=== PATIENT | male | born 1990 | race Caucasian/White ===

== ENCOUNTER 2021-02-21 14:31 | Inpatient (IN) | payer MEDICARE, OTHER ==
[2021-02-21] MEDS ORDERED: ASPIRIN 81 MG PO STA (14:58)
[2021-02-21 15:33] LABS: Basophils # (A) 0.1 k/uL (0-0.2); Basophils % (A) 1 %; Eosinophils # (A) 0.2 k/uL (0-0.7); Eosinophils % (A) 2 %; HCT 52.1 % (39.0-53.0); HGB 18.3 gm/dL (13.0-17.5); Lymphocytes # (A) 1.9 k/uL (1.0-4.8); Lymphocytes % (A) 19 %; MCH 31.3 pg (25.0-35.0); MCHC 35.2 g/dL (31.0-37.0); Mean Platelet Volume 7.7; Monocytes # (A) 0.4 k/uL (0-1.0); Monocytes % (A) 4 %; Neutrophils # (A) 7.2 k/uL (1.3-7.7); Neutrophils % (A) 74 %; Platelet Count 149 k/uL (150-450); RBC 5.85 m/uL (4.30-5.90); RDW 12.7 % (11.5-15.5); WBC 9.8 k/uL (3.8-10.6)
[2021-02-21] MEDS ORDERED: ONDANSETRON 4 MG/2 ML VIAL IVP STA (15:44)
[2021-02-21 15:46] LABS: ALT 58 U/L (4-49); AST 47 U/L (17-59); African American GFR (CKD) >90 (>60 ml/min/1.73 sqM); Albumin 4.2 g/dL (3.5-5.0); Alkaline Phosphatase 98 U/L (38-126); Anion Gap 11 mmol/L; Blood Urea Nitrogen 16 mg/dL (9-20); Calcium 9.4 mg/dL (8.4-10.2); Carbon Dioxide 21 mmol/L (22-30); Chloride 107 mmol/L (98-107); Glucose 124 mg/dL (74-99); Non-African American GFR(CKD) >90 (>60 ml/min/1.73 sqM); Potassium 4.5 mmol/L (3.5-5.1); Sodium 139 mmol/L (137-145); Total Bilirubin 0.8 mg/dL (0.2-1.3); Total Protein 7.5 g/dL (6.3-8.2)
--- NOTE | 2021-02-21 15:48 | XR ---
EXAMINATION TYPE: XR chest 2V DATE OF EXAM: 02/21/2021 COMPARISON: NONE HISTORY: Chest pain TECHNIQUE: Frontal and lateral views of the chest are obtained. FINDINGS: Cardiomediastinal silhouette appears within normal limits. No focal consolidations, pleural effusions , or pneumothorax. Visualized osseous structures and upper abdomen appear unremarkable. IMPRESSION: No acute cardiopulmonary process.
--- NOTE | 2021-02-21 15:54 | ED ---
Chest Pain HPI <Joe Jerry - Last Filed: 02/21/21 16:20> - General Source: patient Mode of arrival: ambulatory Limitations: no limitations <Aakash Pasucal - Last Filed: 02/21/21 16:38> - General Chief Complaint: Chest Pain Stated Complaint: Chest Pain Time Seen by Provider: 02/21/21 14:44 - History of Present Illness Initial Comments: 30-year-old male with history of autism, prediabetic, obesity presents to emergency Department with a chief complaint of chest pain. Mother states the patient has been complaining of chest pain for approximately one week and has been progressively worse over the last day. Patient states it is midsternal, nonreproducible, nonradiating and dull in nature. Should also reports exertional dyspnea that has developed during the period of the chest pain. Also reports feeling slightly lightheaded on exertion with occasional dizziness with the room is spinning around him. He denies any headaches, nausea, vomiting, visual changes, fatigue, one-sided weakness or paresthesias. No history of DVT or PE. (Aakash Pascual) - Related Data Home Medications Medication Instructions Recorded Confirmed FLUoxetine HCL [PROzac Weekly] 90 mg PO WE 02/21/21 02/21/21 Levothyroxine Sodium [Synthroid] 75 mcg PO DAILY 02/21/21 02/21/21 Melatonin 3 mg PO HS 02/21/21 02/21/21 Methylphenidate HCl [Concerta] 36 mg PO DAILY 02/21/21 02/21/21 Multivitamins, Thera [Multivitamin 1 tab PO HS 02/21/21 02/21/21 (formulary)] Semaglutide [Rybelsus] 7 mg PO DAILY 02/21/21 02/21/21 cloNIDine HCL 0.1 mg PO DAILY 02/21/21 02/21/21 cloNIDine HCL 0.2 mg PO HS 02/21/21 02/21/21 lisinopriL 10 mg PO DAILY 02/21/21 02/21/21 Allergies Allergy/AdvReac Type Severity Reaction Status Date / Time shellfish derived Allergy Unknown Verified 02/21/21 16:05 Review of Systems ROS Other: All systems not noted in ROS Statement are negative. <Joe Jerry - Last Filed: 02/21/21 16:20> ROS Other: All systems not noted in ROS Statement are negative. <Aakash Pascual - Last Filed: 02/21/21 16:38> ROS Statement: Those systems with pertinent positive or pertinent negative responses have been documented in the HPI. EKG Findings - EKG Comments: EKG Findings:: S1 Q3 T3. Sinus tachycardia. Ventricular rate 106, NV 146, QRS 90, QTC 486 <Aakash Pascual Last Filed: 02/21/21 16:38> Past Medical History Past Medical History: Diabetes Mellitus, Hypertension, Thyroid Disorder Additional Past Medical History / Comment(s): Autistic History of Any Multi-Drug Resistant Organisms: None Reported Additional Past Surgical History / Comment(s): tailbone cyst Past Psychological History: No Psychological Hx Reported Smoking Status: Never smoker Past Alcohol Use History: None Reported Past Drug Use History: None Reported <Aakash Pascual Last Filed: 02/21/21 16:38> General Exam Limitations: no limitations General appearance: alert, in no apparent distress, obese Head exam: Present: atraumatic, normocephalic, normal inspection Eye exam: Present: normal appearance, PERRL, EOMI Pupils: Present: normal accommodation ENT exam: Present: normal exam, normal oropharynx, mucous membranes moist, TM's normal bilaterally, normal external ear exam Neck exam: Present: normal inspection, full ROM. Absent: tenderness, lymphadenopathy Respiratory exam: Present: normal lung sounds bilaterally. Absent: respiratory distress, wheezes, rales, rhonchi, stridor, chest wall tenderness, accessory muscle use Cardiovascular Exam: Present: regular rate, normal rhythm, normal heart sounds. Absent: systolic murmur Extremities exam: Present: normal inspection, full ROM, normal capillary refill. Absent: tenderness Back exam: Present: normal inspection, full ROM. Absent: tenderness, CVA tenderness (R), CVA tenderness (L) Neurological exam: Present: alert, oriented X3 Psychiatric exam: Present: normal affect, normal mood Skin exam: Present: warm, dry, intact, normal color <Aakash Pascual - Last Filed: 02/21/21 16:38> Course Vital Signs 02/21/21 02/21/21 02/21/21 14:35 15:41 16:00 Temperature 97.9 F Pulse Rate 107 H 100 100 Respiratory 18 18 18 Rate Blood Pressure 98/66 101/66 118/52 O2 Sat by Pulse 96 96 96 Oximetry Chest Pain [facility] <Joe Jerry - Last Filed: 02/21/21 16:20> <Aakash Pascual - Last Filed: 02/21/21 16:38> - [facility] PA attestation: I, Dr. Joe Jerry, personally saw and examined the patient. I have reviewed and agree with the resident/PA findings, including all diagnostic interpretations and treatment plans as written unless otherwise stated. I was present for the huitron portions of any procedures performed and inclusive time noted for any critical care statement. Patient was seen and evaluated at the bedside along with MEREDITH Finn. Briefly, patient 30-year-old male presents with 1 week of shortness of breath. Does complain of pleuritic chest pain and shortness of breath. EKG shows S1 every [address] angiogram of the chest shows subtle pulmonary emboli. He does have elevated troponin of 0.180. He is not hypotensive. He does not have any hypoxia or excessive tachycardia at the bedside.. Patient started on high-dose heparin. Case discussed with rn eligibility Dr. Saleh who is willing to accept patient's care to the ICU. I did notify vascular surgeon Dr. Ivey who requested patient be admitted to medicines, started on heparin and to have echocardiogram in the morning. (Joe Jerry) 30-year-old male autistic, prediabetic, obese presents to the emergency department with a chief complaint of chest pain. On physical examination, patient does not appear to be in significant distress. On arrival he was a bit hypotensive which have gradually improved. He was given aspirin. EKG showed S1Q3T3. He was not hypoxic but was mildly tachycardic. Patient was immediately sent to CT imaging which revealed a saddle pulmonary embolism extending from the right main to the left main and into the pulmonary branches. There is also right-sided heart strain. Covid pending. Patient denied any cough. Heparin was immediately initiated. also earlier the patient and is in agreement with the treatment plan. Patient will be admitted to ICU. Case discussed with (Aakash Pascual) Disposition <Joe Jerry - Last Filed: 02/21/21 16:20> Is patient prescribed a controlled substance at d/c from ED?: No Time of Disposition: 16:38 <Aakash Pascual - Last Filed: 02/21/21 16:38> Clinical Impression: Pulmonary embolism Disposition: ADMITTED IP TO THIS HOSP Condition: Fair Referrals: Judith Rush DO [Primary Care Provider] - 1-2 days
[2021-02-21] MEDS ORDERED: HEPARIN SODIUM 1,000 UN/ML (10ML VL) IV ONE (15:55)
[2021-02-21] MEDS ORDERED: HEPARIN SODIUM 1,000 UN/ML (10ML VL) IV PRN (15:55)
--- NOTE | 2021-02-21 16:01 | CT ---
EXAMINATION TYPE: CT chest angio for PE DATE OF EXAM: 02/21/2021 COMPARISON: Chest radiograph same day HISTORY: Difficulty breathing and chest pain x1 week. CT DLP: 848.2 mGycm Automated exposure control for dose reduction was used. CONTRAST: CT Chest for pulmonary embolism performed with with IV Contrast, patient injected with 100ml mL of Is ovue 370. Multiple contiguous axial CT images were performed of the chest after the administration of 100 mL of Isovue-370. 2-D sagittal and coronal reformatted images were obtained. MIPS images were al so obtained for better evaluation of the vasculature. FINDINGS: LUNGS: Central airways are normal course and caliber. The nodular groundglass opacity in a tree-in-bu d pattern to the left upper lobe to lesser extent the right lower lobe medially. No pleural effusions or pneumothorax. MEDIASTINUM: There is satisfactory enhancement of the pulmonary artery and its branches. Acute saddle pulmonary embolism extending across the right and left main pulmonary arteries and into the segmenta l branches to the right upper lobe, right lower lobe, right middle lobe, left upper lobe, and left lo wer lobe some of which appear completely occluded. There is dilatation of the right ventricle relativ e to the left suggestive of right heart strain (RV/LV ratio of 1.2). There are no greater than 1 cm hilar or mediastinal lymph nodes. No pericardial effusion is seen. OTHER: Diffuse decreased attenuation of the liver parenchyma is fatty infiltration. No acute osseous abnormality.. IMPRESSION: 1. Saddle pulmonary embolism extending into the segmental branches of all the lung lobes. 2. Dilatation of the right ventricle relative to the left suggestive of right heart strain (RV/LV rat io of 1.2). 3. Tree-in-bud nodularity and groundglass within the left upper lobe and to a lesser extent the right lower lobe medially which is nonspecific and may represent just inflammatory etiologies such as resp iratory bronchiolitis or aspiration. Developing pulmonary infarct is not excluded. Findings discussed with Dr. Porter, ER physician, by Dr. Salazar via telephone at 1555 on 02/21/2021
[2021-02-21 16:04] LABS: INR 1.1 (<1.2); Prothrombin Time 11.6 sec (9.0-12.0)
[2021-02-21] MEDS: HEPARIN SOD,PORK IN 0.45% NACL 25,000 UNIT in 0.45% NACL 1 250ML.BAG IV SCH (16:10)
[2021-02-21] MEDS ORDERED: SODIUM CHLORIDE 0.9% 1,000 ML IV ONE (16:13)
[2021-02-21 16:15] LABS: Partial Thromboplastin Time 21.3 sec (22.0-30.0)
[2021-02-21] MEDS ORDERED: NALOXONE 0.4 MG/ML 1 ML VIAL IV PRN (16:23)
[2021-02-21 17:39] LABS: Glucose,Whole Blood 136 mg/dL (75-99)
[2021-02-22] MEDS: HEPARIN SOD,PORK IN 0.45% NACL 25,000 UNIT in 0.45% NACL 1 250ML.BAG IV SCH ×7 (03:02→16:44)
[2021-02-22 03:33] LABS: Basophils # (A) 0.1 k/uL (0-0.2); Basophils % (A) 1 %; Eosinophils # (A) 0.2 k/uL (0-0.7); Eosinophils % (A) 2 %; HCT 45.9 % (39.0-53.0); HGB 16.3 gm/dL (13.0-17.5); Lymphocytes # (A) 2.8 k/uL (1.0-4.8); Lymphocytes % (A) 30 %; MCHC 35.6 g/dL (31.0-37.0); MCV 89.9 fL (80.0-100.0); Mean Platelet Volume 7.7; Monocytes # (A) 0.5 k/uL (0-1.0); Monocytes % (A) 6 %; Neutrophils # (A) 5.5 k/uL (1.3-7.7); Neutrophils % (A) 60 %; Platelet Count 152 k/uL (150-450); RBC 5.11 m/uL (4.30-5.90); RDW 12.6 % (11.5-15.5); WBC 9.3 k/uL (3.8-10.6)
[2021-02-22 04:30] LABS: African American GFR (CKD) >90 (>60 ml/min/1.73 sqM); Anion Gap 9 mmol/L; Blood Urea Nitrogen 17 mg/dL (9-20); Carbon Dioxide 22 mmol/L (22-30); Chloride 109 mmol/L (98-107); Glucose 116 mg/dL (74-99); Magnesium 2.1 mg/dL (1.6-2.3); Non-African American GFR(CKD) >90 (>60 ml/min/1.73 sqM); Potassium 4.4 mmol/L (3.5-5.1); Sodium 140 mmol/L (137-145)
--- NOTE | 2021-02-22 07:30 | XR ---
EXAMINATION TYPE: XR chest 1V DATE OF EXAM: 02/22/2021 COMPARISON: 02/21/2021 HISTORY: 30-year-old male pulmonary embolism TECHNIQUE: Single frontal view of the chest is obtained. FINDINGS: The lung volumes with crowded vascular markings. Heart size accentuated, upper limits of normal. No c onsolidation or pleural effusion. IMPRESSION: Hypoventilatory changes. Heart is borderline in size. No focal infiltrate appreciated radiographicall y.
[2021-02-22 09:59] VITALS: BMI 44.8
[2021-02-22] MEDS ORDERED: MELATONIN 3 MG TABLET PO PRN (10:02)
[2021-02-22] MEDS: PANTOPRAZOLE 40 MG/10 ML VIAL IV SCH (10:09)
--- NOTE | 2021-02-22 12:31 | ECHOF ---
Referral Reason:pulmonary embolism MEASUREMENTS -------- HEIGHT: 182.9 cm WEIGHT: 149.7 kg BP: 132/90 RVIDd: 3.5 cm (< 3.3) IVSd: 1.6 cm (0.6 - 1.1) LVIDd: 3.8 cm (3.9 - 5.3) LVPWd: 1.5 cm (0.6 - 1.1) IVSs: 1.9 cm LVIDs: 2.6 cm LVPWs: 2.0 cm LA Diam: 3.2 cm (2.7 - 3.8) Ao Diam: 3.4 cm (2.0 - 3.7) AV Cusp: 2.0 cm (1.5 - 2.6) MV EXCURSION: 17.701 mm (> 18.000) MV EF SLOPE: 32 mm/s (70 - 150) EPSS: 0.3 cm MV E Escobar: 0.44 m/s MV DecT: 352 ms MV A Escobar: 0.52 m/s MV E/A Ratio: 0.84 RAP: 5.00 mmHg RVSP: 61.66 mmHg FINDINGS -------- Sinus rhythm. This was a technically adequate study. The left ventricular size is normal. There is moderate concentric left ventricular hypertrophy. O verall left ventricular systolic function is normal with, an EF between 55 - 60 %. The right ventricle is mildly enlarged. The right ventricular systolic function is moderately impai red. The left atrium is normal in size. The right atrial size is normal. 5 ml of Lumason was utilized for enhancement of images. The aortic valve is trileaflet, and appears structurally normal. No aortic stenosis or regurgitation. Normal appearing mitral valve. Mild tricuspid regurgitation present. There is severe pulmonary hypertension. The right ventricul ar systolic pressure, as measured by Doppler, is 61.66mmHg. Trace/mild (physiologic) pulmonic regurgitation. The aortic root size is normal. IVC Not well visulized. There is no pericardial effusion. CONCLUSIONS -------- 1. There is moderate concentric left ventricular hypertrophy. 2. Overall left ventricular systolic function is normal with, an EF between 55 - 60 %. 3. The right ventricle is mildly enlarged. 4. The right ventricular systolic function is moderately impaired. 5. 5 ml of Lumason was utilized for enhancement of images. 6. The aortic valve is trileaflet, and appears structurally normal. No aortic stenosis or regurgitati on. 7. Normal appearing mitral valve. 8. Mild tricuspid regurgitation present. 9. There is severe pulmonary hypertension. 10. The right ventricular systolic pressure, as measured by Doppler, is 61.66mmHg. 11. Trace/mild (physiologic) pulmonic regurgitation. 12. There is no pericardial effusion. CONFIGURATION RELEASE MANAGER: Beth Melgar RDCS
--- NOTE | 2021-02-22 13:12 | P.CNPUL ---
History of Present Illness Consult date: 02/22/21 Requesting physician: Jessica Ji Reason for consult: pulmonary embolism Chief complaint: Chest pain and shortness of breath History of present illness: This is a 30-year-old white male, history of autism, obesity, patient was brought in yesterday to the emergency room with acute onset of chest pain, his chest pain has been going on for about one week. But has been progressively worse over the last day prior to admission. Patient was also complaining of some midsternal chest pain, nonradiating and dull in nature. Patient had symptoms of lightheadedness, and occasional dizziness. Workup in the ER included a CT angiogram of the chest, and it showed saddle pulmonary embolism, extending to multiple segmental branches of the pulmonary arteries, echocardiogram showed evidence of pulmonary hypertension, and there is some component of right ventricular strain as noted on the CT of the chest. Patient was admitted, vascular surgery was consulted, however the patient has not been s een by vascular yet. He is already on heparin, hemodynamically stable, not in distress. The patient himself is not a great historian, Review of Systems Constitutional: Negative. HEENT: Negative. Cardiac: Negative. Pulmonary: As noted in HPI. GI: Negative. Genitourinary: Negative. Musculoskeletal: Negative. Skin: Negative. Neurologic: History of autism. Psychiatric: Negative. Hematologic: No history of blood clots or thromboembolic disease in the past. Skin: Negative Past Medical History Past Medical History: Diabetes Mellitus, Hypertension, Thyroid Disorder Additional Past Medical History / Comment(s): Autistic History of Any Multi-Drug Resistant Organisms: None Reported Additional Past Surgical History / Comment(s): tailbone cyst Past Psychological History: No Psychological Hx Reported Smoking Status: Never smoker Past Alcohol Use History: None Reported Past Drug Use History: None Reported Medications and Allergies Home Medications Medication Instructions Recorded Confirmed Type FLUoxetine HCL [PROzac Weekly] 90 mg PO WE 02/21/21 02/21/21 History Levothyroxine Sodium [Synthroid] 75 mcg PO DAILY 02/21/21 02/21/21 History Melatonin 3 mg PO HS 02/21/21 02/21/21 History Methylphenidate HCl [Concerta] 36 mg PO DAILY 02/21/21 02/21/21 History Multivitamins, Thera [Multivitamin 1 tab PO HS 02/21/21 02/21/21 History (formulary)] Semaglutide [Rybelsus] 7 mg PO DAILY 02/21/21 02/21/21 History cloNIDine HCL 0.1 mg PO DAILY 02/21/21 02/21/21 History cloNIDine HCL 0.2 mg PO HS 02/21/21 02/21/21 History lisinopriL 10 mg PO DAILY 02/21/21 02/21/21 History Allergies Allergy/AdvReac Type Severity Reaction Status Date / Time shellfish derived Allergy Unknown Verified 02/21/21 16:05 Physical Exam Vitals: Vital Signs Temp Pulse Resp BP Pulse Ox 02/22/21 13:00 107 H 14 112/90 96 02/22/21 12:00 97.8 F 93 16 128/90 96 02/22/21 11:00 95 14 131/95 96 02/22/21 10:00 92 18 127/91 94 L 02/22/21 09:00 90 12 125/88 94 L 02/22/21 08:00 97.9 F 95 16 126/82 95 02/22/21 07:00 98 12 128/97 96 02/22/21 06:00 92 12 132/90 95 02/22/21 05:00 87 16 124/88 95 02/22/21 04:00 98.3 F 97 14 125/87 96 02/22/21 03:00 92 10 L 114/90 96 02/22/21 02:00 92 18 112/90 95 02/22/21 01:00 98 16 114/78 98 02/22/21 00:00 98.4 F 87 14 125/83 97 02/21/21 23:00 88 14 101/85 96 02/21/21 22:31 91 12 101/85 97 02/21/21 22:00 91 913 H 106/83 96 02/21/21 21:00 97 12 106/81 97 02/21/21 20:00 97.7 F 104 H 13 116/78 93 L 02/21/21 19:00 102 H 14 93 L 02/21/21 18:21 105 H 8 L 96 02/21/21 17:16 97.9 F 98 18 103/81 96 02/21/21 17:00 98.2 F 98 22 103/81 97 02/21/21 16:00 103 H 13 101/66 94 L 02/21/21 15:41 100 18 101/66 96 02/21/21 15:00 119/97 02/21/21 14:52 109 H 32 H 02/21/21 14:35 97.9 F 107 H 18 98/66 96 Intake and Output 02/21/21 02/22/21 02/22/21 22:59 06:59 14:59 Intake Total 360 375.931 100 Output Total 0 705 240 Balance 360 -329.069 -140 Intake: IV 120 160 100 0.9NS 120 160 100 Intake, IV Titration 215.931 Amount Heparin Sod,Pork in 0.45% 215.931 NaCl 25,000 unit In 0.45 % NaCl 1 250ml.bag @ 15. 366 UNITS/KG/HR 23.001 mls/hr IV .[id number] [facility] Rx #:[id number] Oral 240 Output: Urine 0 705 240 Other: Voiding Method Urinal Indwelling Catheter Indwelling Catheter Weight 149.685 kg 149.9 kg 149.9 kg Physical Exam: Revealed 30-year-old white male in no distress. Head: Atraumatic, normocephalic. HEENT:[Neck is supple.] [No neck masses.] [No thyromegaly.] [No JVD.] Chest: [Clear throughout, no crackles, no rhonchi, no wheezes.] Cardiac Exam: [Normal S1 and S2, no S3 gallop, no murmur.] Abdomen: [Soft, nontender, no megaly, no rebound, no guarding, normal bowel sounds.] Extremities: [No clubbing, no edema, no cyanosis.] Neurological Exam: [No focal neurologic deficit.] Alert oriented 3. Psychiatric: Normal mood affect and normal mental status examination. Skin: No rashes. [place] skeletal: No deformities and no limitation in range of motion. Results - Laboratory Findings CBC and BMP: 02/22/21 03:12 02/22/21 03:12 PT/INR, D-dimer PT 11.6 sec (9.0-12.0) 02/21/21 15:22 INR 1.1 (<1.2) 02/21/21 15:22 D-Dimer 14.36 mg/L FEU (<0.60) H 02/21/21 15:22 Abnormal lab findings: Abnormal Labs 02/21/21 02/21/21 02/21/21 15:22 15:22 15:22 Hgb 18.3 H Plt Count 149 L APTT 21.3 L D-Dimer 14.36 H Chloride Carbon Dioxide 21 L Glucose 124 H POC Glucose (mg/dL) ALT 58 H Troponin I 02/21/21 02/21/21 02/21/21 15:22 17:37 22:20 Hgb Plt Count APTT 99.3 H D-Dimer Chloride Carbon Dioxide Glucose POC Glucose (mg/dL) 136 H ALT Troponin I 0.180 H* 02/22/21 02/22/21 02/22/21 03:12 03:12 06:44 Hgb Plt Count APTT 49.0 H 52.0 H D-Dimer Chloride 109 H Carbon Dioxide Glucose 116 H POC Glucose (mg/dL) ALT Troponin I - Diagnostic Findings CT scan - chest: image reviewed (As noted in HPI.) Assessment and Plan Assessment: Impression: Acute pulmonary embolism Severe pulmonary hypertension secondary to above. History of autism. Benign essential hypertension. History of diabetes. History of hypothyroidism. Recommendation: Continue heparin. Vascular surgery consultation for possible EKOS procedure / thrombolysis. Consider TPA and the patient demonstrates any worsening clinical status. Continue to monitor in the ICU for the next 24 hours at least. Resume home meds. We will continue to follow. Time with Patient: Greater than 30
--- NOTE | 2021-02-22 13:20 | P.HPIM ---
History of Present Illness 30-year-old male came in with complaints of chest pain nonradiating pleuritic in nature had a CT angios of the chest which showed saddle pulmonary embolism. Patient has mildly elevated troponins patient also had a echocardiogram which showed severe pulmonary hypertension and right ventricle strain. Basilar surgery was consulted for possible intralesional thrombolytic treatment. Patient is presently on IV heparin. Patient chest pain presently completely resolved patient was tachycardic as. It's probably because of his methy lphenidate which he takes for autism. Patient appears to be mostly nonambulatory and is obese. REVIEW OF SYSTEMS: CONSTITUTIONAL: No fever, no malaise, no fatigue. HEENT: No recent visual problems or hearing problems. Denied any sore throat. CARDIOVASCULAR: No orthopnea, PND, no palpitations, no syncope. PULMONARY: No shortness of breath, no cough, no hemoptysis. GASTROINTESTINAL: No diarrhea, no nausea, no vomiting, no abdominal pain. NEUROLOGICAL: No headaches, no weakness, no numbness. HEMATOLOGICAL: Denies any bleeding or petechiae. GENITOURINARY: Denies any burning micturition, frequency, or urgency. MUSCULOSKELETAL/RHEUMATOLOGICAL: Denies any joint pain, swelling, or any muscle pain. ENDOCRINE: Denies any polyuria or polydipsia. The rest of the 14-point review of systems is negative. PHYSICAL EXAMINATION: GENERAL: The patient is alert and oriented x3, not in any acute distress. Well developed, well nourished. Obese HEENT: Pupils are round and equally reacting to light. EOMI. No scleral icterus. No conjunctival pallor. Normocephalic, atraumatic. No pharyngeal erythema. No thyromegaly. CARDIOVASCULAR: S1 and S2 present. No murmurs, rubs, or gallops. PULMONARY: Chest is clear to auscultation, no wheezing or crackles. ABDOMEN: Soft, nontender, nondistended, normoactive bowel sounds. No palpable organomegaly. MUSCULOSKELETAL: No joint swelling or deformity. EXTREMITIES: No cyanosis, clubbing, or pedal edema. NEUROLOGICAL: Gross neurological examination did not reveal any focal deficits. SKIN: No rashes. Assessment and plan Acute pulmonary embolism saddle PE, as per surgery will evaluate the patient patient is presently on IV heparin as listed surgeries evaluating for intralesional thrombolytic therapy patient does have right ventricular strain at this time. Patient does have pulmonary hypertension. Peak PE is probably secondary to mostly sedentary state and obesity. -Severe pulmonary hypertension secondary to pulmonary embolism -Essential hypertension -type 2 diabetes mellitus - hypothyroidism DVT prophylaxis: Patient is being treated for pulmonary embolism Past Medical History Past Medical History: Diabetes Mellitus, Hypertension, Thyroid Disorder Additional Past Medical History / Comment(s): Autistic History of Any Multi-Drug Resistant Organisms: None Reported Additional Past Surgical History / Comment(s): tailbone cyst Past Psychological History: No Psychological Hx Reported Smoking Status: Never smoker Past Alcohol Use History: None Reported Past Drug Use History: None Reported Medications and Allergies Home Medications Medication Instructions Recorded Confirmed Type FLUoxetine HCL [PROzac Weekly] 90 mg PO WE 02/21/21 02/21/21 History Levothyroxine Sodium [Synthroid] 75 mcg PO DAILY 02/21/21 02/21/21 History Melatonin 3 mg PO HS 02/21/21 02/21/21 History Methylphenidate HCl [Concerta] 36 mg PO DAILY 02/21/21 02/21/21 History Multivitamins, Thera [Multivitamin 1 tab PO HS 02/21/21 02/21/21 History (formulary)] Semaglutide [Rybelsus] 7 mg PO DAILY 02/21/21 02/21/21 History cloNIDine HCL 0.1 mg PO DAILY 02/21/21 02/21/21 History cloNIDine HCL 0.2 mg PO HS 02/21/21 02/21/21 History lisinopriL 10 mg PO DAILY 02/21/21 02/21/21 History Allergies Allergy/AdvReac Type Severity Reaction Status Date / Time shellfish derived Allergy Unknown Verified 02/21/21 16:05 Physical Exam Vitals: Vital Signs Temp Pulse Resp BP Pulse Ox 02/22/21 13:00 107 H 14 112/90 96 02/22/21 12:00 97.8 F 93 16 128/90 96 02/22/21 11:00 95 14 131/95 96 02/22/21 10:00 92 18 127/91 94 L 02/22/21 09:00 90 12 125/88 94 L 02/22/21 08:00 97.9 F 95 16 126/82 95 02/22/21 07:00 98 12 128/97 96 02/22/21 06:00 92 12 132/90 95 02/22/21 05:00 87 16 124/88 95 02/22/21 04:00 98.3 F 97 14 125/87 96 02/22/21 03:00 92 10 L 114/90 96 02/22/21 02:00 92 18 112/90 95 02/22/21 01:00 98 16 114/78 98 02/22/21 00:00 98.4 F 87 14 125/83 97 02/21/21 23:00 88 14 101/85 96 02/21/21 22:31 91 12 101/85 97 02/21/21 22:00 91 913 H 106/83 96 02/21/21 21:00 97 12 106/81 97 02/21/21 20:00 97.7 F 104 H 13 116/78 93 L 02/21/21 19:00 102 H 14 93 L 02/21/21 18:21 105 H 8 L 96 02/21/21 17:16 97.9 F 98 18 103/81 96 02/21/21 17:00 98.2 F 98 22 103/81 97 02/21/21 16:00 103 H 13 101/66 94 L 02/21/21 15:41 100 18 101/66 96 02/21/21 15:00 119/97 02/21/21 14:52 109 H 32 H 02/21/21 14:35 97.9 F 107 H 18 98/66 96 Intake and Output 02/21/21 02/22/21 02/22/21 22:59 06:59 14:59 Intake Total 360 375.931 100 Output Total 0 705 240 Balance 360 -329.069 -140 Intake: IV 120 160 100 0.9NS 120 160 100 Intake, IV Titration 215.931 Amount Heparin Sod,Pork in 0.45% 215.931 NaCl 25,000 unit In 0.45 % NaCl 1 250ml.bag @ 15. 366 UNITS/KG/HR 23.001 mls/hr IV .[id number] REPLACED BY [facility] Rx #:[id number] Oral 240 Output: Urine 0 705 240 Other: Voiding Method Urinal Indwelling Catheter Indwelling Catheter Weight 149.685 kg 149.9 kg 149.9 kg Results CBC & Chem 7: 02/22/21 03:12 02/22/21 03:12 Labs: Abnormal Lab Results - Last 24 Hours (Table) 02/21/21 02/21/21 02/21/21 Range/Units 15:22 15:22 15:22 Hgb 18.3 H (13.0-17.5) gm/dL Plt Count 149 L (150-450) k/uL APTT 21.3 L (22.0-30.0) sec D-Dimer 14.36 H (<0.60) mg/L FEU Chloride (98-107) mmol/L Carbon Dioxide 21 L (22-30) mmol/L Glucose 124 H (74-99) mg/dL POC Glucose (mg/dL) (75-99) mg/dL ALT 58 H (4-49) U/L Troponin I (0.000-0.034) ng/mL 02/21/21 02/21/21 02/21/21 Range/Units 15:22 17:37 22:20 Hgb (13.0-17.5) gm/dL Plt Count (150-450) k/uL APTT 99.3 H (22.0-30.0) sec D-Dimer (<0.60) mg/L FEU Chloride (98-107) mmol/L Carbon Dioxide (22-30) mmol/L Glucose (74-99) mg/dL POC Glucose (mg/dL) 136 H (75-99) mg/dL ALT (4-49) U/L Troponin I 0.180 H* (0.000-0.034) ng/mL 02/22/21 02/22/21 02/22/21 Range/Units 03:12 03:12 06:44 Hgb (13.0-17.5) gm/dL Plt Count (150-450) k/uL APTT 49.0 H 52.0 H (22.0-30.0) sec D-Dimer (<0.60) mg/L FEU Chloride 109 H (98-107) mmol/L Carbon Dioxide (22-30) mmol/L Glucose 116 H (74-99) mg/dL POC Glucose (mg/dL) (75-99) mg/dL ALT (4-49) U/L Troponin I (0.000-0.034) ng/mL Thrombosis Risk Factor Assmnt - Choose All That Apply Any of the Below Risk Factors Present?: Yes Each Factor Represents 1 point: Medical pt on bed rest, Obesity (BMI >25) Each Risk Factor Represents 2 Points: Patient confined to bed Thrombosis Risk Factor Assessment Total Risk Factor Score: 4 Thrombosis Risk Factor Assessment Level: Moderate Risk
[2021-02-22] MEDS ORDERED: ALTEPLASE 2 MG VIAL (CATHFLO) IV STA (15:05)
[2021-02-22] MEDS ORDERED: IV FLUID CONTINUATION 1,000 ML IV ONE (15:05)
--- NOTE | 2021-02-22 15:22 | P.GSCN ---
History of Present Illness Consult date: 02/22/21 History of present illness: Rodo is a 30-year-old high functioning autistic male who presented to the emergency room with complaints of shortness of breath and chest pain. On workup and evaluation he was found to have a pulmonary which appeared to be submassive with right heart strain with evidence of severe pulmonary hypertension and right heart strain on echocardiogram. He has not is any increasing swelling in either of his legs. He denies any other blood clots in the past. Per his mother there is some question whether or not his father had blood clots versus atherosclerotic disease. He denies any recent travel or immobility. He is relatively sedentary Review of Systems 14 point review of systems performed Pertinent positives and negatives per the HPI. Past Medical History Past Medical History: Diabetes Mellitus, Hypertension, Thyroid Disorder Additional Past Medical History / Comment(s): Autistic History of Any Multi-Drug Resistant Organisms: None Reported Additional Past Surgical History / Comment(s): tailbone cyst Past Psychological History: No Psychological Hx Reported Smoking Status: Never smoker Past Alcohol Use History: None Reported Past Drug Use History: None Reported Medications and Allergies Home Medications Medication Instructions Recorded Confirmed Type FLUoxetine HCL [PROzac Weekly] 90 mg PO WE 02/21/21 02/21/21 History Levothyroxine Sodium [Synthroid] 75 mcg PO DAILY 02/21/21 02/21/21 History Melatonin 3 mg PO HS 02/21/21 02/21/21 History Methylphenidate HCl [Concerta] 36 mg PO DAILY 02/21/21 02/21/21 History Multivitamins, Thera [Multivitamin 1 tab PO HS 02/21/21 02/21/21 History (formulary)] Semaglutide [Rybelsus] 7 mg PO DAILY 02/21/21 02/21/21 History cloNIDine HCL 0.1 mg PO DAILY 02/21/21 02/21/21 History cloNIDine HCL 0.2 mg PO HS 02/21/21 02/21/21 History lisinopriL 10 mg PO DAILY 02/21/21 02/21/21 History Allergies Allergy/AdvReac Type Severity Reaction Status Date / Time shellfish derived Allergy Unknown Verified 02/21/21 16:05 Surgical - Exam Vital Signs Temp Pulse Resp BP Pulse Ox 97.9 F 107 H 18 98/66 96 02/21/21 14:35 02/21/21 14:35 02/21/21 14:35 02/21/21 14:35 02/21/21 14:35 Gen. is a pleasant and cooperative obese male in no acute distress. HEENT is normocephalic, atraumatic, extraocular motion intact heart is tachycardic but otherwise regular. Lungs are clear bilaterally. abdomen is soft obese, nontender nondistended. Extremity show no clubbing, cyanosis or edema. Normal mood And affect. Cranial nerves II-12 grossly intact. Skin without rashes Results CTA of the chest is reviewed. Echocardiogram is reviewed. - Labs 02/22/21 03:12 02/22/21 03:12 Abnormal Lab Results - Last 24 Hours (Table) 02/21/21 02/21/21 02/21/21 Range/Units 15:22 15:22 15:22 Hgb 18.3 H (13.0-17.5) gm/dL Plt Count 149 L (150-450) k/uL APTT 21.3 L (22.0-30.0) sec D-Dimer 14.36 H (<0.60) mg/L FEU Chloride (98-107) mmol/L Carbon Dioxide 21 L (22-30) mmol/L Glucose 124 H (74-99) mg/dL POC Glucose (mg/dL) (75-99) mg/dL ALT 58 H (4-49) U/L Troponin I (0.000-0.034) ng/mL 02/21/21 02/21/21 02/21/21 Range/Units 15:22 17:37 22:20 Hgb (13.0-17.5) gm/dL Plt Count (150-450) k/uL APTT 99.3 H (22.0-30.0) sec D-Dimer (<0.60) mg/L FEU Chloride (98-107) mmol/L Carbon Dioxide (22-30) mmol/L Glucose (74-99) mg/dL POC Glucose (mg/dL) 136 H (75-99) mg/dL ALT (4-49) U/L Troponin I 0.180 H* (0.000-0.034) ng/mL 02/22/21 02/22/21 02/22/21 Range/Units 03:12 03:12 06:44 Hgb (13.0-17.5) gm/dL Plt Count (150-450) k/uL APTT 49.0 H 52.0 H (22.0-30.0) sec D-Dimer (<0.60) mg/L FEU Chloride 109 H (98-107) mmol/L Carbon Dioxide (22-30) mmol/L Glucose 116 H (74-99) mg/dL POC Glucose (mg/dL) (75-99) mg/dL ALT (4-49) U/L Troponin I (0.000-0.034) ng/mL Diabetes panel 02/21/21 02/22/21 Range/Units 15:22 03:12 Sodium 139 140 (137-145) mmol/L Potassium 4.5 4.4 (3.5-5.1) mmol/L Chloride 107 109 H (98-107) mmol/L Carbon Dioxide 21 L 22 (22-30) mmol/L BUN 16 17 (9-20) mg/dL Creatinine 0.99 0.87 (0.66-1.25) mg/dL Glucose 124 H 116 H (74-99) mg/dL Calcium 9.4 9.0 (8.4-10.2) mg/dL AST 47 (17-59) U/L ALT 58 H (4-49) U/L Alkaline Phosphatase 98 (38-126) U/L Total Protein 7.5 (6.3-8.2) g/dL Albumin 4.2 (3.5-5.0) g/dL Calcium panel 02/21/21 02/22/21 Range/Units 15:22 03:12 Calcium 9.4 9.0 (8.4-10.2) mg/dL Albumin 4.2 (3.5-5.0) g/dL Pituitary panel 02/21/21 02/22/21 Range/Units 15:22 03:12 Sodium 139 140 (137-145) mmol/L Potassium 4.5 4.4 (3.5-5.1) mmol/L Chloride 107 109 H (98-107) mmol/L Carbon Dioxide 21 L 22 (22-30) mmol/L BUN 16 17 (9-20) mg/dL Creatinine 0.99 0.87 (0.66-1.25) mg/dL Glucose 124 H 116 H (74-99) mg/dL Calcium 9.4 9.0 (8.4-10.2) mg/dL Adrenal panel 02/21/21 02/22/21 Range/Units 15:22 03:12 Sodium 139 140 (137-145) mmol/L Potassium 4.5 4.4 (3.5-5.1) mmol/L Chloride 107 109 H (98-107) mmol/L Carbon Dioxide 21 L 22 (22-30) mmol/L BUN 16 17 (9-20) mg/dL Creatinine 0.99 0.87 (0.66-1.25) mg/dL Glucose 124 H 116 H (74-99) mg/dL Calcium 9.4 9.0 (8.4-10.2) mg/dL Total Bilirubin 0.8 (0.2-1.3) mg/dL AST 47 (17-59) U/L ALT 58 H (4-49) U/L Alkaline Phosphatase 98 (38-126) U/L Total Protein 7.5 (6.3-8.2) g/dL Albumin 4.2 (3.5-5.0) g/dL Assessment and Plan Assessment: Submassive pulmonary embolism with evidence of right heart strain Tachycardia secondary to above Autism Plan: Long discussion was had with the patient and his mother regarding the findings of the computed tomography scan as well as the echocardiogram. At this time I do believe he would benefit from thrombolytic intervention. Risks and benefits were discussed with the patient and his mother who seemingly understood and are willing to proceed as such. We will plan to go for the procedure today.
[2021-02-22] MEDS ORDERED: fentaNYL (PF) 50 MCG/ML 2 ML AMP ONE (15:24)
[2021-02-22] MEDS ORDERED: fentaNYL (PF) 50 MCG/ML 2 ML AMP IV ONE (15:25)
[2021-02-22] MEDS ORDERED: LIDOCAINE 1% INJ 10MG/ML (20 ML MDV) ONE (15:26)
[2021-02-22] MEDS ORDERED: LIDOCAINE 1% INJ 10MG/ML (20 ML MDV) SQ ONE (15:26)
--- NOTE | 2021-02-22 16:03 | P.OP ---
Date of Procedure: 02/22/21 Description of Procedure: Preoperative diagnosis: Submassive bilateral pulmonary emboli Postoperative diagnosis: Same Procedure: #1 ultrasound-guided right common femoral vein access of central venous catheters x2 #2 Initiation of pulmonary pharmacal mechanical thrombolysis with EKOS Surgeon: Sarah Beth Oliver D.O. EBL: Less than 10 mL IV fluids: See records Urine output: See records Drains: None Complications: None immediately apparent Condition: Stable to ICU Operative indication and findings: [Rodo is a 30-year-old relatively sedentary autistic male who presented to the ER with chest pains or shortness of breath was found to have a submassive bilateral pulmonary emboli with extensive thrombus burden and saddle pulmonary embolus. Given these findings it was recommended he undergo thrombolysis. Risks and benefits were discussed with the patient as well as his mother who seemingly understood and were willing to proceed as such] Procedure in detail: [The patient was taken to the radiology suite and placed in supine position. Bilateral groins are prepped and draped in usual sterile fa shion. A preprocedure timeout was performed, all parties were in agreement. The right common femoral vein was identified and found to be compressible without any evidence of visible thrombus. The skin overlying was anesthetized 1% lidocaine plain. A multipurpose needle was used and the vein was accessed and a wire was placed. This was done again through a separate access site. 2, 6-English sheaths were placed. Using catheters and wires the right and left pulmonary arteries were accessed. Due to severely elevated PA pressure greater than 60s in the echo, no pulmonary angiogram was performed An EKOS ultrasonic pharmacomechanical infusion catheter was placed and confirmed appropriate positioning within the pulmonary arteries using fluoroscopy. 2 mg of TPA was placed in each catheter. The catheters were hooked up to appropriate fluid infusions for the K[place]ett II protocol for submassive pulmonary emboli. The sheaths were sutured in place. Dressing was placed. The patient was tra nsferred back to ICU in stable condition having tolerated the procedure well.
[2021-02-22] MEDS ORDERED: SODIUM CHLORIDE 0.9% 1,000 ML IV ONE (16:04)
[2021-02-22] MEDS: ALTEPLASE 10 MG in SODIUM CHLORIDE 0.9% 100 ML IV ONE ×6 (16:09→16:45)
[2021-02-22] MEDS: SODIUM CHLORIDE 0.9% 1,000 ML IV SCH ×5 (16:16→16:44)
[2021-02-22] MEDS ORDERED: MORPHINE SULFATE 2 MG/ML SYRINGE IVP PRN (16:29)
[2021-02-22 23:03] LABS: Basophils # (A) 0.1 k/uL (0-0.2); Basophils % (A) 1 %; Eosinophils # (A) 0.1 k/uL (0-0.7); Eosinophils % (A) 1 %; HCT 45.5 % (39.0-53.0); HGB 15.5 gm/dL (13.0-17.5); Lymphocytes # (A) 2.3 k/uL (1.0-4.8); Lymphocytes % (A) 23 %; MCH 30.5 pg (25.0-35.0); MCV 89.9 fL (80.0-100.0); Mean Platelet Volume 7.7; Monocytes # (A) 0.5 k/uL (0-1.0); Monocytes % (A) 5 %; Neutrophils # (A) 6.7 k/uL (1.3-7.7); Neutrophils % (A) 68 %; Platelet Count 128 k/uL (150-450); RBC 5.07 m/uL (4.30-5.90); RDW 12.6 % (11.5-15.5); WBC 9.8 k/uL (3.8-10.6)
[2021-02-23 06:37] LABS: Basophils % (A) 1 %; Eosinophils # (A) 0.1 k/uL (0-0.7); Eosinophils % (A) 2 %; HCT 46.4 % (39.0-53.0); HGB 15.9 gm/dL (13.0-17.5); Lymphocytes # (A) 1.6 k/uL (1.0-4.8); Lymphocytes % (A) 18 %; MCH 31.5 pg (25.0-35.0); MCHC 34.3 g/dL (31.0-37.0); MCV 91.7 fL (80.0-100.0); Mean Platelet Volume 7.6; Monocytes # (A) 0.4 k/uL (0-1.0); Monocytes % (A) 5 %; Neutrophils # (A) 6.6 k/uL (1.3-7.7); Neutrophils % (A) 74 %; Platelet Count 122 k/uL (150-450); RBC 5.06 m/uL (4.30-5.90); RDW 12.5 % (11.5-15.5); WBC 8.9 k/uL (3.8-10.6)
[2021-02-23 08:05] LABS: African American GFR (CKD) >90 (>60 ml/min/1.73 sqM); Blood Urea Nitrogen 19 mg/dL (9-20); Calcium 8.7 mg/dL (8.4-10.2); Carbon Dioxide 21 mmol/L (22-30); Chloride 112 mmol/L (98-107); Non-African American GFR(CKD) >90 (>60 ml/min/1.73 sqM); Potassium 4.3 mmol/L (3.5-5.1)
[2021-02-23 08:20] LABS: Anion Gap 7 mmol/L; Glucose 116 mg/dL (74-99); Sodium 140 mmol/L (137-145)
--- NOTE | 2021-02-23 09:00 | P.PN ---
Subjective Progress Note Date: 02/23/21 Rodo seen and evaluated this morning. He says his breathing feels better. He denies any further chest pains. Objective - Vital Signs Vital signs: Vital Signs Temp 97.8 F 02/23/21 08:00 Pulse 79 02/23/21 08:00 Resp 14 02/23/21 08:00 BP 132/84 02/23/21 08:00 Pulse Ox 98 02/23/21 08:00 Intake & Output 02/22/21 02/23/21 02/23/21 18:59 06:59 18:59 Intake Total 360 220 40 Output Total 400 605 80 Balance -40 -385 -40 Weight 149.9 kg 152.5 kg Intake: IV 360 220 40 0.9NS 160 220 40 Output: Urine 400 605 80 Other: Voiding Method Indwelling Catheter Indwelling Catheter - Exam Gen. is a pleasant cooperative male in no acute distress. HEENT is normocephalic, atraumatic, poor dentition. Heart appears regular at this time. No longer tachycardic. Lungs are clear bilaterally. Abdomen is soft. Extremities no clubbing, cyanosis or edema. The right groin access site is clean and dry. No evidence of hematoma. The indwelling catheters are removed without any issue. The sheath drain in place to be removed per nursing - Labs CBC & Chem 7: 02/23/21 06:22 02/23/21 06:22 Labs: Abnormal Lab Results - Last 24 Hours (Table) 02/22/21 02/23/21 02/23/21 Range/Units 22:43 02:58 06:22 Plt Count 128 L 122 L (150-450) k/uL Fibrinogen 111 L (200-500) mg/dL Chloride (98-107) mmol/L Carbon Dioxide (22-30) mmol/L Glucose (74-99) mg/dL 02/23/21 02/23/21 Range/Units 06:22 06:22 Plt Count (150-450) k/uL Fibrinogen 101 L (200-500) mg/dL Chloride 112 H (98-107) mmol/L Carbon Dioxide 21 L (22-30) mmol/L Glucose 116 H (74-99) mg/dL Assessment and Plan Assessment: Submassive pulmonary embolism with evidence of right heart strain Tachycardia secondary to above, resolved Autism Plan: Overall Rodo appears to doing well. His labs are reviewed. His fibrinogen did dip low but no evidence of active bleeding. At this time no further plans for interventions. Remove sheaths per protocol this morning. Initiate Eliquis 10 mg twice a day and evaluate for coverage through the pharmacy. He may sit up and move around after about 2 hours once the sheath had been removed. Monitor the groin site. There is a possibility he may go home today versus tomorrow if he has no further issues. We will leave that decision up to medicine. He will need a repeat echocardiogram in the next 48-72 hours, this can be done as outpatient if he gets set up appropriately
[2021-02-23] MEDS: Semaglutide [Rybelsus] PO SCH (09:11)
[2021-02-23] MEDS: PANTOPRAZOLE 40 MG/10 ML VIAL IV SCH (09:11)
[2021-02-23] MEDS: LEVOTHYROXINE 75 MCG TAB PO SCH (09:11)
--- NOTE | 2021-02-23 11:32 | P.PN ---
Subjective Progress Note Date: 02/23/21 Principal diagnosis: Acute bilateral pulmonary embolism This is a 30-year-old white male, history of autism, obesity, patient was brought in yesterday to the emergency room with acute onset of chest pain, his chest pain has been going on for about one week. But has been progressively worse over the last day prior to admission. Patient was also complaining of some midsternal chest pain, nonradiating and dull in nature. Patient had symptoms of lightheadedness, and occasional dizziness. Workup in the ER included a CT angiogram of the chest, and it showed saddle pulmonary embolism, extending to multiple segmental branches of the pulmonary arteries, echocardiogram showed evidence of pulmonary hypertension, and there is some component of right ventricular strain as noted on the CT of the chest. Patient was admitted, vascular surgery was consulted, however the patient has not been seen by vascular yet. He is already on heparin, hemodynamically stable, not in distress. The patient himself is not a great historian, Patient was reevaluated today on 02/23/2021, patient is feeling much better today, patient presented yesterday with submassive pulmonary embolism and the patient underwent pulmonary pharmo/ mechanical thrombolysis with EKOS yesterday, presently on heparin and the plan is to transition heparin to Eliquis or Xarelto later today. In the meantime the patient is doing well, relatively asymptomatic. No cough no wheezing no shortness of breath. Patient tolerated the procedure quite well yesterday, and again he is basically asymptomatic today. CBC is unremarkable electrolytes and renal profile are normal Objective - Vital Signs Vital signs: Vital Signs Temp 97.8 F 02/23/21 08:00 Pulse 61 02/23/21 10:00 Resp 14 02/23/21 10:00 BP 143/83 02/23/21 10:00 Pulse Ox 99 02/23/21 10:00 Intake & Output 02/22/21 02/23/21 02/23/21 18:59 06:59 18:59 Intake Total 360 220 80 Output Total 400 605 190 Balance -40 -385 -110 Weight 149.9 kg 152.5 kg Intake: IV 360 220 80 0.9NS 160 220 80 Output: Urine 400 605 190 Other: Voiding Method Indwelling Catheter Indwelling Catheter Indwelling Catheter - Exam Physical Exam: Revealed 30-year-old white male in no distress. Head: Atraumatic, normocephalic. HEENT:[Neck is supple.] [No neck masses.] [No thyromegaly.] [No JVD.] Chest: [Clear throughout, no crackles, no rhonchi, no wheezes.] Cardiac Exam: [Normal S1 and S2, no S3 gallop, no murmur.] Abdomen: [Soft, nontender, no megaly, no rebound, no guarding, normal bowel sounds.] Extremities: [No clubbing, no edema, no cyanosis.] Neurological Exam: [No focal neurologic deficit.] Alert oriented 3. Psychiatric: Normal mood affect and normal mental status examination. Skin: No rashes. Musko skeletal: No deformities and no limitation in range of motion. - Labs CBC & Chem 7: 02/23/21 06:22 02/23/21 06:22 Labs: Abnormal Lab Results - Last 24 Hours (Table) 02/22/21 02/23/21 02/23/21 Range/Units 22:43 02:58 06:22 Plt Count 128 L 122 L (150-450) k/uL Fibrinogen 111 L (200-500) mg/dL Chloride (98-107) mmol/L Carbon Dioxide (22-30) mmol/L Glucose (74-99) mg/dL 02/23/21 02/23/21 Range/Units 06:22 06:22 Plt Count (150-450) k/uL Fibrinogen 101 L (200-500) mg/dL Chloride 112 H (98-107) mmol/L Carbon Dioxide 21 L (22-30) mmol/L Glucose 116 H (74-99) mg/dL Assessment and Plan Assessment: Impression: Acute submassive pulmonary embolism, status post PHARMO/mechanical thrombolysis with EKOS, post operative day #1 Severe pulmonary hypertension secondary to above. History of autism. Benign essential hypertension. History of diabetes. History of hypothyroidism. Recommendation: Transition heparin to Eliquis or Xarelto Transfer patient out of the ICU to a monitor bed on selective today. Resume home meds. We will continue to follow. Time with Patient: Less than 30
[2021-02-23] MEDS: HEPARIN SOD,PORK IN 0.45% NACL 25,000 UNIT in 0.45% NACL 1 250ML.BAG IV SCH ×2 (13:43→19:15)
[2021-02-23] MEDS: APIXABAN 5 MG TAB PO SCH ×2 (13:46→20:27)
--- NOTE | 2021-02-23 14:19 | P.PN ---
Subjective Progress Note Date: 02/23/21 This is a 30-year-old admitted with acute bilateral pulmonary embolism. He denies IV drug use, dehydration or recent travel .denies family history of .CTA of chest reported saddle pulmonary embolism, status post pulmonary pharmaceutical mechanical thrombolysis with EKOS. Anticoagulated on heparin drip. Reports chest pressure/shortness of breath better. Maintaining O2 sats in the 90s on 2 L nasal cannula. Hemoglobin 15.9, platelets 122, renal function stable. Objective - Vital Signs Vital signs: Vital Signs Temp 97.8 F 02/23/21 08:00 Pulse 61 02/23/21 12:00 Resp 15 02/23/21 12:00 BP 141/83 02/23/21 12:00 Pulse Ox 99 02/23/21 12:00 Intake & Output 02/22/21 02/23/21 02/23/21 18:59 06:59 18:59 Intake Total 360 220 120 Output Total 400 605 290 Balance -40 -385 -170 Weight 149.9 kg 152.5 kg Intake: IV 360 220 120 0.9NS 160 220 120 Output: Urine 400 605 290 Other: Voiding Method Indwelling Catheter Indwelling Catheter Indwelling Catheter - Exam PHYSICAL EXAM: VITAL SIGNS: As above GENERAL: Sitting up in bed, no acute distress HEENT: Conjunctivae normal. eyes normal. NECK: No JVD. No thyroid enlargement. No LNs CARDIOVASCULAR: S1, S2 regular. No murmur RESPIRATION: Breath sounds diminished in the bases. No rhonchi or crackles. ABDOMEN: Soft, nontender . No guarding. no masses palpable.Bowel sounds heard. LEGS: No edema. no swelling PSYCHIATRY: Alert and oriented X3, mood and affect normal. NERVOUS SYSTEM: Cranial N 2-12 grossly normal. Moves all 4 limbs. No focal deficits. Strength and sensation grossly intact.. Skin: Warm and dry, no rash - Labs CBC & Chem 7: 02/23/21 06:22 02/23/21 06:22 Labs: Abnormal Lab Results - Last 24 Hours (Table) 02/22/21 02/23/21 02/23/21 Range/Units 22:43 02:58 06:22 Plt Count 128 L 122 L (150-450) k/uL Fibrinogen 111 L (200-500) mg/dL Chloride (98-107) mmol/L Carbon Dioxide (22-30) mmol/L Glucose (74-99) mg/dL 02/23/21 02/23/21 Range/Units 06:22 06:22 Plt Count (150-450) k/uL Fibrinogen 101 L (200-500) mg/dL Chloride 112 H (98-107) mmol/L Carbon Dioxide 21 L (22-30) mmol/L Glucose 116 H (74-99) mg/dL Assessment and Plan Assessment: Acute submassive PE, saddle PE per CTA with right ventricular strain, status post pharmo,mechanical thrombolysis with EKOS, etiology unclear, suspected related to sedentary lifestyle, hypercoagulable workup pending Severe pulmonary hypertension secondary to the above Essential hypertension Diabetes mellitus type 2 Hypothyroidism Obesity, morbid, BMI 45.6 History of autism Plan: Continue on current medication regime ,monitoring and symptomatic treatment. Anticoagulation currently with heparin transitioning to Eliquis as per vascular surgery. Cleared for transfer out of ICU to [facility] as per poultry processor. Hypercoagulable workup ordered The impression and plan of care has been dictated as directed. : I performed a history and examination of this patient, discussed the same with the dictator. I agree with the dictator's note ,documented as a scribe. Any additional findings or plans will be noted.
[2021-02-24 03:44] LABS: Basophils % (A) 1 %; Eosinophils # (A) 0.2 k/uL (0-0.7); Eosinophils % (A) 3 %; HCT 42.5 % (39.0-53.0); HGB 14.5 gm/dL (13.0-17.5); Lymphocytes # (A) 1.8 k/uL (1.0-4.8); Lymphocytes % (A) 23 %; MCH 30.9 pg (25.0-35.0); MCV 90.9 fL (80.0-100.0); Mean Platelet Volume 7.9; Monocytes # (A) 0.4 k/uL (0-1.0); Monocytes % (A) 5 %; Neutrophils # (A) 5.3 k/uL (1.3-7.7); Neutrophils % (A) 67 %; Platelet Count 131 k/uL (150-450); RBC 4.68 m/uL (4.30-5.90); RDW 12.8 % (11.5-15.5); WBC 7.9 k/uL (3.8-10.6)
[2021-02-24 03:55] LABS: African American GFR (CKD) >90 (>60 ml/min/1.73 sqM); Anion Gap 5 mmol/L; Blood Urea Nitrogen 19 mg/dL (9-20); Calcium 8.6 mg/dL (8.4-10.2); Carbon Dioxide 24 mmol/L (22-30); Chloride 108 mmol/L (98-107); Glucose 108 mg/dL (74-99); Non-African American GFR(CKD) >90 (>60 ml/min/1.73 sqM); Potassium 3.8 mmol/L (3.5-5.1); Sodium 137 mmol/L (137-145)
[2021-02-24 05:19] VITALS: BP 140/83
[2021-02-24] MEDS ORDERED: PANTOPRAZOLE 40 MG TABLET PO SCH (07:30)
[2021-02-24] MEDS: APIXABAN 5 MG TAB PO SCH (08:13)
[2021-02-24] MEDS: LEVOTHYROXINE 75 MCG TAB PO SCH (08:13)
[2021-02-24] MEDS: Semaglutide [Rybelsus] PO SCH (08:16)
[2021-02-24 08:52] VITALS: PULSE 81; RESP 13; TEMP 98.3
[2021-02-24] MEDS ORDERED: FLUOXETINE PO SCH (09:00)
--- NOTE | 2021-02-24 10:46 | P.DS ---
Providers Date of admission: 02/21/21 16:23 Expected date of discharge: 02/24/21 Attending physician: Jose Rush MD Consults: 02/21/21 16:22 Consult Physician Routine Consulting Provider: Rodney Saleh Consult Reason/Comments: saddle PE Do you want consulting provider notified?: Already Contacted Consult Physician Routine Consulting Provider: Shalom Ivey Consult Reason/Comments: saddle PE Do you want consulting provider notified?: Already Contacted Primary care physician: Judith Rush Hospital Course: Final Diagnoses: Acute submassive PE, saddle PE per CTA with right ventricular strain, status post pharmo,mechanical thrombolysis with EKOS, etiology unclear, suspected related to sedentary lifestyle, hypercoagulable workup pending Severe pulmonary hypertension secondary to the above Essential hypertension Diabetes mellitus type 2 Hypothyroidism Obesity, morbid, BMI 45.6 History of autism Hospital course:This is a 30-year-old admitted with acute bilateral pulmonary embolism. He denies IV drug use, dehydration or recent travel .denies family history of .CTA of chest reported saddle pulmonary embolism, status post pulmonary pharmaceutical mechanical thrombolysis with EKOS. Anticoagulated on heparin drip. Reports chest pressure/shortness of breath better. Maintaining O2 sats in the 90s on 2 L nasal cannula. Hemoglobin 15.9, platelets 122, renal function stable. Transitioned to Eliquis.VSS. CBC unremarkable. Electrolytes, renal profile within normal limits. Denies chest pain, chest pressure, palpitations or shortness of breath. Denies lightheadedness, dizziness or focal deficits.Hypercoagulable workup drawn with pending results to be discussed outpatient in clinic. Cleared by pulmonary and vascular surgery for discharge. Patient will be discharged home in stable condition with guarded prognosis. - Exam PHYSICAL EXAM: GENERAL: A & O X 3,High functioning level-Autistic,Sitting up in bed, no acute distress CARDIOVASCULAR: S1, S2 regular. No murmur, no edema. RESPIRATION: Breath sounds diminished in the bases. ABDOMEN: Soft, nontender . No guarding. no masses palpable.Bowel sounds heard. NERVOUS SYSTEM: Cranial N 2-12 grossly normal. No focal deficits. The impression and plan of care has been dictated as directed. : I performed a history and examination of this patient, discussed the same with the dictator. I agree with the dictator's note ,documented as a scribe. Any additional findings or plans will be noted. Patient Condition at Discharge: Stable Plan - Discharge Summary Discharge Rx Participant: No New Discharge Prescriptions: New Apixaban [Eliquis Starter Pack (for VTE)] 0 mg PO DIRECTED 30 Days #1 pack Apixaban [Eliquis] 5 mg PO BID #30 tab Pantoprazole [Protonix] 40 mg PO AC-BRKFST #30 tablet. Continue Melatonin 3 mg PO HS cloNIDine HCL 0.1 mg PO DAILY Methylphenidate HCl [Concerta] 36 mg PO DAILY Levothyroxine Sodium [Synthroid] 75 mcg PO DAILY FLUoxetine HCL [PROzac Weekly] 90 mg PO WE cloNIDine HCL 0.2 mg PO HS Semaglutide [Rybelsus] 7 mg PO DAILY Multivitamins, Thera [Multivitamin (formulary)] 1 tab PO HS lisinopriL 10 mg PO DAILY Discharge Medication List FLUoxetine HCL [PROzac Weekly] 90 mg PO WE 02/21/21 [History] Levothyroxine Sodium [Synthroid] 75 mcg PO DAILY 02/21/21 [History] Melatonin 3 mg PO HS 02/21/21 [History] Methylphenidate HCl [Concerta] 36 mg PO DAILY 02/21/21 [History] Multivitamins, Thera [Multivitamin (formulary)] 1 tab PO HS 02/21/21 [History] Semaglutide [Rybelsus] 7 mg PO DAILY 02/21/21 [History] cloNIDine HCL 0.1 mg PO DAILY 02/21/21 [History] cloNIDine HCL 0.2 mg PO HS 02/21/21 [History] lisinopriL 10 mg PO DAILY 02/21/21 [History] Apixaban [Eliquis Starter Pack (for VTE)] 0 mg PO DIRECTED 30 Days #1 pack 02/23/21 [Rx] Apixaban [Eliquis] 5 mg PO BID #30 tab 02/23/21 [Rx] Pantoprazole [Protonix] 40 mg PO AC-BRKFST #30 tablet. 02/24/21 [Rx] Follow up Appointment(s)/Referral(s): Judith Rush, [Primary Care Provider] - 3 Days Ambulatory/Diagnostic Orders: Complete Blood Count w/diff [LAB.AMB] Time Frame: 3 Days, Location: None Selected Activity/Diet/Wound Care/Special Instructions: Hypercoag. W/U in progress with results to be discussed in clinic
--- NOTE | 2021-02-24 11:56 | P.PN ---
Subjective Progress Note Date: 02/24/21 Principal diagnosis: Saddle pulmonary embolism On 02/24/2021 patient seen in follow-up in the intensive care unit, he has been awaiting a bed on selective care unit since yesterday, he is status post EKOS for a large saddle pulmonary embolism on 02/22/2021. Hemodynamically he is stable, he is off the heparin infusion, he has been transitioned to oral Eliquis. Denies any shortness of breath, appears to be breathing comfortably, no complaints of chest pain or hemoptysis, on room air pulse ox of 96%, blood pressure has been stable, he has had no fever or chills. Has had no acute events overnight, his labs today have been reviewed. Tolerating oral intake, no nausea vomiting or diarrhea. His renal function is stable on today's labs. His hemoglobin is stable at 14.5, and platelet count is 131. Objective - Vital Signs Vital signs: Vital Signs Temp 98.3 F 02/24/21 08:00 Pulse 81 02/24/21 08:00 Resp 13 02/24/21 08:00 BP 140/83 02/24/21 08:00 Pulse Ox 96 02/24/21 08:00 Intake & Output 02/23/21 02/24/21 02/24/21 18:59 06:59 18:59 Intake Total 980 80 270 Output Total 465 220 Balance 515 -140 270 Weight 152.2 kg Intake: IV 180 80 20 0.9NS 180 80 20 Oral 800 250 Output: Urine 465 220 Other: Voiding Method Indwelling Catheter Urinal Urinal # Voids 1 # Bowel Movements 1 - Exam GENERAL EXAM: Alert, very pleasant, 30-year-old morbidly obese white male, resting comfortably in bed, currently on room air pulse ox of 96%, comfortable in no apparent distress. HEAD: Normocephalic/atraumatic. EYES: Normal reaction of pupils, equal size. Conjunctiva pink, sclera white. NOSE: Clear with pink turbinates. THROAT: No erythema or exudates. NECK: No masses, no JVD, no thyroid enlargement, no adenopathy. CHEST: No chest wall deformity. Symmetrical expansion. LUNGS: Equal air entry with no crackles, wheeze, rhonchi or dullness. CVS: Regular rate and rhythm, normal S1 and S2, no gallops, no murmurs, no rubs ABDOMEN: Soft, nontender. No hepatosplenomegaly, normal bowel sounds, no guarding or rigidity. EXTREMITIES: No clubbing, no edema, no cyanosis, 2+ pulses and upper and lower extremities. MUSCULOSKELETAL: Muscle strength and tone normal. SPINE: No scoliosis or deformity SKIN: No rashes CENTRAL NERVOUS SYSTEM: Alert and oriented -3. No focal deficits, tone is norm al in all 4 extremities. PSYCHIATRIC: Alert and oriented -3. Appropriate affect. Intact judgment and insight. - Labs CBC & Chem 7: 02/24/21 03:29 02/24/21 03:29 Labs: Abnormal Lab Results - Last 24 Hours (Table) 02/24/21 02/24/21 Range/Units 03:29 03:29 Plt Count 131 L (150-450) k/uL Chloride 108 H (98-107) mmol/L Glucose 108 H (74-99) mg/dL Assessment and Plan Plan: Assessment: #1. Acute submassive pulmonary embolism, status post mechanical thromb olysis/EKOS. Postoperative day #2 #2. Severe pulmonary hypertension and right ventricular strain related to the above #3. History of autism #4. Benign essential hypertension #5. History of diabetes mellitus #6. History of hypothyroidism #7. Morbid obesity Plan: Patient has been transitioned to [facility] Clinically stable No worsening dyspnea, no chest pain, vital signs have been stable He is being discharged home today I performed a history & physical examination of the patient and discussed their management with my nurse practitioner, Lissett Velarde. I reviewed the nurse practitioner's note and agree with the documented findings and plan of care. Lung sounds are positive for diminished breath sounds. The findings and the impression was discussed with the patient. I attest to the documentation by the nurse practitioner. Time with Patient: Less than 30
[2021-02-25 11:16] LABS: APTT 45 Sec(s) (<43); APTT 1:1 Mix 40 Sec(s) (<43); DRVVT 1:1 Mix 47 Sec(s) (<44); DRVVT Confirmation Negative (Negative); Dilute Russell Viper Venom 66 Sec(s) (<44)
== END 2021-02-24 11:55 | disposition home or self-care (01) | DRG 167 ==
LOC: EC 14:31 → 2SICU 16:23
PROVIDERS: ADMIT Family Medicine; ATTEND Family Medicine
PROC: 02FQ3Z0 Fragmentation of Right Pulmonary Artery, Percutaneous Approach, Ultrasonic (ICD-10-PCS; principal; 2021-02-22 18:15)
PROC: B31S1ZZ Fluoroscopy of Right Pulmonary Artery using Low Osmolar Contrast (ICD-10-PCS; principal; 2021-02-22 18:15)
PROC: B31T1ZZ Fluoroscopy of Left Pulmonary Artery using Low Osmolar Contrast (ICD-10-PCS; principal; 2021-02-22 18:15)
PROC: 3E03317 Introduction of Other Thrombolytic into Peripheral Vein, Percutaneous Approach (ICD-10-PCS; principal; 2021-02-22 18:15)
PROC: 02FR3Z0 Fragmentation of Left Pulmonary Artery, Percutaneous Approach, Ultrasonic (ICD-10-PCS; principal; 2021-02-22 18:15)
DX: I26.92 Saddle embolus of pulmonary artery without acute cor pulmonale (principal); Z68.42 Body mass index [BMI] 45.0-49.9, adult; F84.0 Autistic disorder; I27.20 Pulmonary hypertension, unspecified; Z20.822 Contact with and (suspected) exposure to COVID-19; I10 Essential (primary) hypertension; E66.01 Morbid (severe) obesity due to excess calories; E11.9 Type 2 diabetes mellitus without complications; E03.9 Hypothyroidism, unspecified; Z72.3 Lack of physical exercise; Z91.013 Allergy to seafood; Z79.890 Hormone replacement therapy; Z79.899 Other long term (current) drug therapy
CPT/HCPCS: 36415; 37211; 71045; 71046; 71275; 80048; 80053; 81240; 81241; 83735; 84484; 85025; 85300; 85303; 85306; 85379; 85384; 85610; 85613; 85730; 87635; 93005; 93306; 96374; 96375; 99285

== ENCOUNTER → 2024-01-26 | Outpatient (CLI) | payer MEDICARE, OTHER ==
--- NOTE | 2024-01-26 18:06 | CT ---
EXAMINATION TYPE: CT angio chest CT DLP: 622.9 mGycm, Automated exposure control for dose reduction was used. DATE OF EXAM: 01/26/2024 7:24 AM COMPARISON: CTA chest 02/21/2021. CLINICAL INDICATION:Male, 33 years old with history of I26.92 SADDLE EMBOLUS OF PULMONARY ARTERY; Sad dle embolus of pulmonary artery. TECHNIQUE/CONTRAST: CTA scan of the thorax is performed with IV Contrast, patient injected with 100ml mL of Isovue 370, p ulmonary embolism protocol. MIP images are created and reviewed. FINDINGS: Pulmonary Artery: There is no evidence for a central filling defect within the pulmonary vasculature to suggest acute pulmonary embolism. Limited evaluation of the segmental and subsegmental branches se condary to bolus timing. The pulmonary artery is of normal size. Lungs/Pleura: No evidence of focal consolidation, pleural effusion or pneumothorax. Airway: Large airways are patent. Heart: Heart is within normal limits for size.. No pericardial effusion. Vasculature: No evidence of aortic aneurysm. Conventional three-vessel aortic arch. Mediastinum: No gross evidence of adenopathy. Musculoskeletal: No acute osseous abnormalities Soft Tissues: Unremarkable. Lower neck: No significant findings. Upper Abdomen: Diffuse low-attenuation to the liver parenchyma consistent with steatosis. IMPRESSION: No evidence of central pulmonary embolism. Limited evaluation of the segmental and subsegmental branc hes due to poor bolus timing.
== END | disposition home or self-care (01) ==
LOC: RADCTMAIN 06:52
PROVIDERS: ATTEND Family Medicine
DX: I26.92 Saddle embolus of pulmonary artery without acute cor pulmonale (principal)
CPT/HCPCS: 71275; Q9967